=== PATIENT | male | born 1930 | race Caucasian/White ===

== ENCOUNTER → 2019-06-10 05:43 | Day surgery (SDC) | payer MEDICARE ==
--- NOTE | 2019-06-04 15:10 | HP ---
AMENDED REPORT NOW INCLUDES DESIGNATED COSIGNER CC: Dr. Mott * PREOPERATIVE HISTORY AND PHYSICAL: DATE OF ADMISSION: This patient is scheduled for same-day surgery by Dr. Szymanski on 06/10/19. DATE OF PREOPERATIVE HISTORY AND PHYSICAL: 06/04/19. ATTENDING SURGEON: Dr. Petros Szymanski * (dictated by Aileen Sandoval NP). CHIEF COMPLAINT: Left inguinal hernia. HISTORY OF PRESENT ILLNESS: The patient is an 88-year-old male, recently evaluated by Dr. Szymanski for a left inguinal hernia. The patient reported a left -sided inguinal bulge that had been present for a few months, associated with minimal discomfort; the pain increased if he was straining to have a bowel movement and was relieved by rest. He denied any associated nausea, vomiting, or dysuria. He had an open right inguinal hernia repair approximately [address] Szymanski examined the patient and noted a reducible left inguinal hernia. Dr. Szymanski has recommended robotic left inguinal hernia repair with mesh as a same-day surgery procedure under general anesthesia. Dr. Szymanski explained the nature of the surgical procedure, the rationale for the procedure , the relevant risks and benefits, and today I have reviewed the expected postoperative care and recovery. The patient has had a chance to ask questions and stated that he understands the information and is satisfied with the answers given to his questions. He will sign surgical consent on the day of surgery. PAST MEDICAL HISTORY: Soewrodb-eg-putuxy mitral insufficiency, followed by Dr. Rodriguez who states that the patient is stable but should be monitored for congestive heart failure and volume overload should be avoided; benign prostatic hypertrophy and is followed by Dr. Tovar; gastroesophageal reflux disease; irritable bowel syndrome. PAST SURGICAL HISTORY: Right inguinal hernia repair approximately 12 years ago , bilateral cataract extraction 2013, right Achilles tendon repair, and right wrist surgery. MEDICATIONS: 1. Ranitidine 150 mg p.o. daily in the morning. 2. Alfuzosin ER 10 mg p.o. daily at dinnertime. 3. Finasteride 5 mg p.o. daily at lunch. 4. Fish oil 1000 mg p.o. every other day. 5. Multivitamin 1 tablet p.o. daily in the morning. 6. Metronidazole cream to areas of rosacea morning and evening. ALLERGIES: No known drug allergies, but he is sensitive to LATEX. FAMILY HISTORY: Father at age 77 with gastric cancer. Mother at age 78 with cardiac conditions. No known anesthesia complications, bleeding tendencies, or clotting disorders. 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 He has never been a smoker. He drinks 1 glass of wine per day and exercises regularly and denies the use of substances. REVIEW OF SYSTEMS: Constitutional: No fevers, chills, excessive fatigue, or weight loss. Endocrine: No diabetes or thyroid disease. Hematologic: No easy bruising or bleeding. No previous blood transfusions. Respiratory: No dyspnea on exertion. No chronic cough. Cardiovascular: No anginal chest pain. No palpitations. No syncopal episodes. Please see the accompanying consultation note dated 04/08/[address] Rodriguez; echocardiogram 03/26/19 revealed a visual ejection fraction of 50% to 55%, alutiiq mitral valve with uqpgnvdv-yi-kxqlbj regurgitation. Dr. Rodriguez is aware that the patient is having this robotic left inguinal hernia repair under general anesthesia and states that the patient is stable, but is to be monitored for congestive heart failure and volume overload is to be avoided; the patient is active, playing tennis 2 times a week and also exercises at a gym twice a week. Gastrointestinal: No nausea, vomiting, diarrhea, GI bleeding, or chronic constipation. No change in bowel habits. Genitourinary: No dysuria. Musculoskeletal: Normal strength and tone. Integumentary: Multiple seborrheic keratoses. No inflammation or ulceration. Neurologic: No headache or blurred vision. No areas of focal weakness or numbness. General: No history of deep vein thrombosis or pulmonary embolism. No previous anesthesia complications. PHYSICAL EXAMINATION GENERAL SURVEY: The patient is an 88-year-old male, well developed, well nourished, in no acute distress. VITAL SIGNS: Height 67 inches, weight 136 pounds. Body mass index 21.3. Blood pressure 106/74. Pulse 72 and regular. Respiratory rate 16. Temperature 98 tympanic. HEENT: Benign. NECK: Supple. No cervical lymphadenopathy. LUNGS: Breath sounds bilaterally clear. HEART: Regular rate and rhythm. No gallops or rubs. There is a grade 4/6 systolic murmur in the left sternal border. ABDOMEN: Active bowel sounds, soft, nondistended, nontender throughout. No obvious masses, organomegaly, or evidence of umbilical hernia. Inguinal exam done by Dr. Szymanski revealed a reducible left inguinal hernia. GENITALIA AND RECTAL EXAM: Done recently, not repeated. EXTREMITIES: Warm without edema. NEUROLOGIC: Alert and oriented x3, steady gait. SKIN: Warm, dry, and intact. Multiple seborrheic keratoses. No skin ulcerations or inflammation. IMPRESSION: Left inguinal hernia. PLAN: Same-day surgery admission to Dr. Szymanski's service on 06/10/19, for robotic left inguinal hernia repair with mesh. ANGELA SANDOVAL, SENIOR PAYROLL SPECIALIST [id number]/[facility] #: [id number] MTDD
[~2019-06-10 05:43] MED LIST: Buffered Lidocaine 1% SYRIN* 1 ML/SYRINGE INTRADERM ONE; Bupivacaine 0.5%* 50 ML MDV VIAL ONE; Dexamethasone IV* 4 MG/ML 1 ML (4 MG) ONE; EPHEDrine (Pressors)* 50 MG/ML VIAL ONE; Lactated Ringers 1000 ML Bag* 1,000 ML IV SCH; Lidocaine 2% PF * 5 ML VIAL ONE; Midazolam* 1 MG/ML 2 ML VIAL (2 MG) ONE; Naloxone* 0.4 MG/ML 1 ML VIAL IV PRN; Ondansetron INJ* 2 MG/ML VIAL IV PRN; Ondansetron INJ* 2 MG/ML VIAL ONE; Propofol* 10 MG/ML 20 ML BTL ONE; Rocuronium* 10 MG/ML VIAL ONE; Sugammadex * 200 MG/2 ML VIAL IV PUSH ONE; ceFAZolin 2 GM in NS PREMIX(*) 2 GM/100 ML BAG IVPB ONE; fentaNYL* 50 MCG/ML 2 ML VIAL (100 MCG VIAL) ONE; oxyCODONE/Acetamin 5/325 MG* TAB PO PRN
[2019-06-10] MEDS: fentaNYL* 50 MCG/ML 2 ML VIAL (100 MCG VIAL) IV PRN ×2 (09:14→09:24)
[2019-06-10 10:33] VITALS: BP 114/57
--- NOTE | 2019-06-10 21:44 | OP ---
DATE OF OPERATION: 06/10/19 - [facility] DATE OF : 34 SURGEON: Petros Szymanski MD PRE-OP DIAGNOSIS: Left inguinal hernia. POST-OP DIAGNOSIS: Left inguinal hernia. OPERATIVE PROCEDURE: Robotic repair of left inguinal hernia with mesh. INDICATIONS: Left inguinal hernia risks included but not limited to bleeding, infection, injury to intraabdominal contents, pelvic nerves and vessels, recurrence of the hernia were explained to the patient, who seemed to understand and agreed to the procedure and all questions were answered. DESCRIPTION OF PROCEDURE: The patient was taken to the operating room and placed supine. Preoperative antibiotics were given. After successful induction of general endotracheal anesthesia, the abdomen was prepped and draped in a sterile fashion. Time-out was performed, indicating correct patient and correct procedure. A 5-mm trocar was placed in the left upper quadrant under direct visualization of the camera using a bladeless Optiview trocar. Pneumoperitoneum was achieved to 15 mmHg. Camera was placed in the abdomen and the abdomen was scanned. There was no obvious injury from trocar placement. 8-mm robotic trocars were placed in the midline and right upper quadrant respectively under direct visualization of the camera and then the 5- mm trocar was placed with an 8-mm robotic trocar. The patient was placed in the slight Trendelenburg position. The camera revealed a left inguinal hernia. The mesh and suture were passed under direct visualization of the camera. The robot was brought in and then docked. The peritoneum was taken down and a large direct hernia sac was dissected from the surrounding tissue and the cord structures were identified and avoided. The mesh, left anatomic, was placed over the pelvis covering the direct and indirect and femoral spaces. The peritoneum was closed with a running V-Loc stitch. The abdomen was scanned and there was no obvious injury. The pneumoperitoneum was released from the abdomen. Trocars were removed. The skin was closed with Monocryl and glue. He tolerated the procedure well. He was extubated and taken to Recovery in stable condition. [id number]/[facility] #: [id number] MTDD
== END | disposition home or self-care (01) ==
LOC: OR 05:43
PROVIDERS: ATTEND Surgery
DX: K40.90 Unilateral inguinal hernia, without obstruction or gangrene, not specified as recurrent (principal); I34.0 Nonrheumatic mitral (valve) insufficiency; N40.0 Benign prostatic hyperplasia without lower urinary tract symptoms; K21.9 Gastro-esophageal reflux disease without esophagitis; K58.9 Irritable bowel syndrome, unspecified
CPT/HCPCS: 49650; S2900; C1781; J0690; J1100; J2250; J2405; J2704; J3010; J3490

== ENCOUNTER 2019-09-20 09:01 | Emergency (ER) | payer MEDICARE ==
--- OUTSIDE RECORDS SUMMARY | 2019-09-20 09:07 | XMS REPORT | Continuity of Care Document ---
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 Onset: 01/06/2015 Lens Replaced By Other Means Todd Wheeler O.D. Onset: 11/25/2013 Superficial injury of cornea Justin Vallejo M.D. Onset: 11/13/2013 Status Post Surgery Justin Vallejo M.D. Onset: 11/13/2013 Neoplastic disease Justin Vallejo M.D. Onset: 10/09/2013 Vitreous degeneration Justin Vallejo M.D. Onset: 10/09/2013 Nuclear senile cataract Justin Vallejo M.D. Onset: 10/09/2013 Social History Type Date Description Comments Sex Unknown ETOH Use Drinks 1 Alcoholic Beverage Per Day Tobacco Use Start: Unknown Patient has never smoked Smoking Status Reviewed: 07/25/19 Patient has never smoked Allergies, Adverse Reactions, Alerts Active Allergies Reaction Severity Comments Date NKDA 10/09/2013 Hay Fever 12/25/2017 Seasonal 07/11/2019 Medications Active Medications SIG Qnty Indications Ordering Provider Date Fluorometholone 1gtt three 10ml Todd Smith, OD 07/11/2019 0.1% Suspension times a day both eyes x 1 week, then twice per day x 1 week Finasteride (Avodart) Unknown Tablets Alfuzosin HCL ER Unknown (Uroxatral) Tablets ER 24HR Ranitidine HCL Take 1 Tablet Unknown 150mg Tablets By Mouth Once Daily Mens Multivitamin Unknown Tablets Fish Oil 1 by mouth Unknown 500mg Capsules twice a day Immunizations Description No Information Available Vital Signs Date Vital Result Comment 07/25/2019 10:45am Intraocular Pressure Right Eye 15 mmHg Intraocular Pressure Left Eye 15 mmHg 07/11/2019 11:19am Intraocular Pressure Right Eye 15 mmHg Intraocular Pressure Left Eye 15 mmHg Results Description No Information Available Procedures Description No Information Available Medical Devices Description No Information Available Encounters Type Date Location Provider Dx Diagnosis Office Visit 07/11/2019 Main Office Todd Smith, OD H04.123 Dry eye syndrome of 11: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
[2019-09-20 09:22] VITALS: BP 134/63
--- NOTE | 2019-09-20 09:40 | UC ---
Cardiac HPI - HPI Summary HPI Summary: WOKE UP THIS MORNING IN HIS NORMAL STATE OF HEALTH. ABOUT 8 AM DEVELOPED LEFT LOWER ANTERIOR CHEST PAIN. PATIENT IS UNABLE TO REALLY DESCRIBE IT. NO RADIATION OF THE PAIN. DENIES SHORTNESS OF BREATH, NAUSEA, SWEATS, DIZZINESS. STATES HE HAS A HISTORY OF A LEAKY MITRAL VALVE AND FOLLOWS WITH DR. JANE WITH CARDIOLOGY. HAS ECHOCARDIOGRAM SCHEDULED IN 3 DAYS. THE PAIN LASTED FOR OVER AN HOUR AND WHEN IT DID NOT RESOLVE THEY DECIDED TO COME TO THE URGENT CARE. UPON ARRIVAL TO THE URGENT CARE HIS PAIN SPONTANEOUSLY RESOLVED. HIS GAVE HIM 8 X 81 MG ASPIRINS THIS MORNING. HE HAS NO PERSONAL HISTORY OF CAD HOWEVER HIS BROTHER HAS HAD BYPASS SURGERY. - History of Current Complaint Stated Complaint: chestpain Time Seen by Provider: 09/20/19 09:02 Hx Obtained From: Patient, Family/Assembler Dielectric Heater - Onset/Duration: Sudden Onset, Lasting Hours, Resolved Timing: Constant Initial Severity: Moderate Current Severity: None Pain Intensity: 5 Chest Pain Location: Left Anterior - LOWER Aggravating Factor(s): Nothing Alleviating Factor(s): Spontaneous Resolution Associated Signs & Symptoms: Positive: Chest Pain. Negative: Anxiety, Dizziness , SOB, Fever, Nausea/Vomiting - Allergy/Home Medications Allergies/Adverse Reactions: Allergies Allergy/AdvReac Type Severity Reaction Status Date / Time lactose Allergy Intermediate GI Upset Verified 06/10/19 06:20 PMH/Surg Hx/FS Hx/Imm Hx Other Cancer History: BASAL CELL - Surgical History Surgical History: Yes Surgery Procedure, Year, and Place: [place] [facility] [place], [place]/17/2012[place] [facility]. [place]VERAL [place] [facility] [place]ES [place] [facility] [place] Social History Alcohol Use: Daily Alcohol Amount: 1 glass of wine A DAY Substance Use Type: None Smoking Status (MU): Never Smoked Tobacco Review of Systems All Other Systems Reviewed And Are Negative: Yes Constitutional: Positive: Negative Respiratory: Positive: Negative Cardiovascular: Positive: Chest Pain Gastrointestinal: Positive: Negative Physical Exam Triage Information Reviewed: Yes Appearance: Well-Appearing, No Pain Distress, Well-Nourished Vital Signs: Initial Vital Signs Temp 98.1 F 09/20/19 09:16 Pulse 56 09/20/19 09:16 Resp 18 09/20/19 09:16 BP 134/63 09/20/19 09:16 Pulse Ox 97 09/20/19 09:16 Vital Signs Reviewed: Yes Eyes: Positive: Conjunctiva Clear ENT: Positive: Hearing grossly normal Neck: Positive: Supple Respiratory Exam: Normal Cardiovascular: Positive: Bradycardia Abdomen Description: Positive: Soft Musculoskeletal: Positive: No Edema Neurological: Positive: Alert Psychological: Positive: Normal Response To Family, Age Appropriate Behavior Skin: Negative: Rashes Diagnostics - EKG Cardiac Rate: Bradycardia - 52 bpm Cardiac Rhythm: Sinus: Normal Ectopy: None ST Segment: Normal - Assessment/Plan Course Of Treatment: [place] [facility] FOR FURTHER EVAL AND MGMT. - Clinical Impression Provider Diagnosis: Chest pain - Physician Notifications Discussed Patient Care With: Chalino Sloan - [place] [facility] [place] Time Discussed With Above Provider: 09:54 Instructed by Provider To: Will See In ED Discharge ED - Sign-Out/Discharge Documenting (check all that apply): Patient Departure All imaging exams completed and their final reports reviewed: No Studies - Discharge Plan Condition: Stable Disposition: TRANS HIGHER LVL OF CARE FAC Patient Education Materials: Chest Pain (ED) Referrals: [place] Mott MD [Primary Care Provider] - - Billing Disposition and Condition Condition: STABLE Disposition: Trans Higher Lvl of Care Fac
[2019-09-20] MEDS ORDERED: NS 0.9% 1000 ML** 1,000 ML IV ONE (09:49)
== END 2019-09-20 10:06 | disposition short-term general hospital (02) ==
LOC: UCEAST 09:01
DX: R07.9 Chest pain, unspecified (principal); R00.1 Bradycardia, unspecified; Z91.011 Allergy to milk products; Z85.828 Personal history of other malignant neoplasm of skin
CPT/HCPCS: 96361; 99213; G0463

== ENCOUNTER 2019-09-20 10:24 | Emergency (ER) | payer MEDICARE ==
--- NOTE | 2019-09-20 10:32 | ED ---
HPI Chest Pain - HPI Summary HPI Summary: The patient is an 89 y/o M arriving by ambulance from [facility] with a chief complaint of left CP that has since resolved. He reports that he woke up around 0730 and had pain in the lower left anterior chest while at rest which lasted for about an hour without any nausea, diaphoresis, or SOB. He states that he had taken eight 81mg ASA prior to going to [facility], where his pain spontaneously resolved. Patient has been pain-free, and vitals were stable en route with BP of 119/60 mmHg and HR between 50-60 bpm. He notes that he has never experienced this pain before. Unsure of date of last stress test. No recent travel, surgery , history of blood clots. Exercises regularly. PMHx: leaky mitral valve, cardiomegaly, GERD. Plan for ECG on 09/23/19. [facility] Director is Dr. Rodriguez. FHx : fatal DC in mother. Nonsmoker, one glass wine daily, no substance use. Medications reviewed. Allergies noted. - History of Current Complaint Hx Obtained From: Patient Onset/Duration: Started Hours Ago, Resolved Time of Onset: 07:30 Timing: Lasting Minutes - one hour Initial Severity: Moderate Current Severity: None Pain Intensity: 0 Pain Scale Used: 0-10 Numeric Chest Pain Location: Lower Sternal, Left Anterior Chest Pain Radiates: No Character: Dull/Aching Aggravating Factor(s): Nothing Alleviating Factor(s): Spontaneous Resolution Associated Signs and Symptoms: Positive: Chest Pain - resolved. Negative: Shortness of Breath, Diaphoresis, Nausea - Allergy/Home Medications Allergies/Adverse Reactions: Allergies Allergy/AdvReac Type Severity Reaction Status Date / Time lactose Allergy Intermediate GI Upset Verified 06/10/19 06:20 Home Medications: Home Medications Metronidazole (TOPICAL)(NF) [Metrocream (NF)] 1 applic TOPICAL .1-2X/DAY [History Confirmed 09/20/19] Multivitamins/Minerals TAB* [Theragran/minerals TAB*] 1 tab PO DAILY 09/20/19 [ History Confirmed 09/20/19] PMH/Surg Hx/FS Hx/Imm Hx Endocrine/Hematology History: Denies: Hx Diabetes Cardiovascular History: Reports: Hx Cardiomegaly - ENLARGED, Hx Valvular Heart Disease - leaky mitral valve Denies: Hx Hypertension, Hx Pacemaker/ICD, Other Cardiovascular Problems/ Disorders GI History: Reports: Hx Gastroesophageal Reflux Disease, Hx Irritable Bowel Denies: Other GI Disorders History: Denies: Hx Renal Disease Musculoskeletal History: Reports: Hx Tendonitis - 12 YEARS AGO, ACHILLES Sensory History: Reports: Hx Cataracts - [place], Hx Contacts or Glasses - reading glasses, Hx Hearing Aid - both ears Opthamlomology History: Reports: Hx Cataracts - [place], Hx Contacts or Glasses - reading glasses Neurological History: Denies: Other Neuro Impairments/Disorders Psychiatric History: Denies: Hx Panic Disorder - Cancer History Cancer Type, 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 [facility], RIGHT NOSE, 07/17/2012, [facility]. SEVERAL BASAL CELL SKIN, [facility]. ACHILLES TENDON,RIGHT repair 2001, [facility] Hx Anesthesia Reactions: No - Family History Known Family History: Positive: Cardiac Disease - fatal DC mother - Social History Alcohol Use: Daily Alcohol Amount: 1 glass of wine A DAY Hx Substance Use: No Substance Use Type: Reports: None Hx Tobacco Use: No Smoking Status (MU): Never Smoked Tobacco Review of Systems Negative: Skin Diaphoresis Positive: Chest Pain - left lower, resolved Negative: Shortness Of Breath Negative: Nausea All Other Systems Reviewed And Are Negative: Yes Physical Exam - Summary Physical Exam Summary: Constitutional: Well-developed, Well-nourished, Alert. (-) Distressed Skin: Warm, Dry HENT: Normocephalic; Atraumatic Eyes: Conjunctiva normal Neck: Musculoskeletal ROM normal neck. (-) JVD, (-) Stridor, (-) Tracheal deviation Cardio: Rhythm regular, rate normal, Heart sounds normal; Intact distal pulses; Radial pulses are 2+ and symmetric. (-) Murmur Pulmonary/Chest wall: Effort normal. (-) Respiratory distress, (-) Wheezes, (-) Rales Abd: Soft, (-) tenderness, (-) Distension, (-) Guarding, (-) Rebound Musculoskeletal: (-) Edema Lymph: (-) Cervical adenopathy Neuro: Alert, Oriented x3, Good pulses bilaterally in radius, No calf tenderness , No venous cords, No pain with dorsiflexion of foot. Psych: Mood and affect Normal Triage Information Reviewed: Yes Vital Signs Reviewed: Yes Procedures - Sedation Patient Received Moderate/Deep Sedation with Procedure: No Diagnostics - Laboratory Result Diagrams: 09/20/19 10:48 09/20/19 10:48 Lab Statement: Any lab studies that have been ordered have been reviewed, and results considered in the medical decision making process. - Radiology CXR Radiology Interpretation Completed By: Radiologist Summary of Radiographic Findings: Impression: No acute cardiopulmonary process by radiograph. ED physician has reviewed this report. - EKG 1034 Cardiac Rate: Bradycardia - 44 bpm EKG Rhythm: Sinus Bradycardia EKG Comparison: No Significant Change - Similar to previous taken 0908 this morning at [facility]. Summary of EKG Findings: EKG at 1034 reveals sinus bradycardia at 44 bpm. No ischemic changes. ED physician has reviewed and interpreted this EKG. 1338 Cardiac Rate: Bradycardia - 48 bpm EKG Rhythm: Sinus Bradycardia Summary of EKG Findings: EKG at 1338 reveals sinus bradycardia at 48 bpm. Multiple premature beats. ED physician has reviewed and interpreted this EKG. Re-Evaluation - Re-Evaluation First Eval Re-Evaluation Time: 14:10 Change: Improved Comment: We discussed results and plan for discharge. Chest Pain Course/Dx - Course Course Of Treatment: Patient is here with a singular episode of left-sided chest pain that had resided by the time he got here. Patient had an EKG showed no ischemic changes. Patient had serial troponins which were negative. Patient has a well score of 0 for PE and his story is not consistent with dissection. Patient has a heart score of 2 and already has an appointment with his wirer helper next week. Patient was discharged for outpatient stress test. - Diagnoses Provider Diagnoses: Chest pain Discharge ED - Sign-Out/Discharge Documenting (check all that apply): Patient Departure - Patient will be discharged home. - Discharge Plan Condition: Stable Disposition: HOME Patient Education Materials: Chest Pain (DC) Referrals: [place] Mott MD [Primary Care Provider] - 3 Days Chelsie Rodriguez MD [Medical Doctor] - 09/23/19 Additional Instructions: Follow up with Dr. Rodriguez at your scheduled appointment next week, and discuss with him the possibility for a stress test. Come back to the emergency department right away for any worsening chest pain, trouble breathing, or any other concerning symptoms. - Billing Disposition and Condition Condition: STABLE Disposition: Home - Attestation Statements Document Initiated by Araceli: Yes Documenting Scribe: Patience Giraldo Provider For Whom Araceli is Documenting (Include Credential): Dr. Bird Mendenhall MD Scribe Attestation: Patience Alvarado scribed for Dr. Bird Mendenhall MD on 09/20/19 at 1447. Scribe Documentation Reviewed: Yes Provider Attestation: The documentation as recorded by the Patience le accurately reflects the service I personally performed and the decisions made by me, Dr. Bird Mendenhall MD Status of Scribe Document: Viewed
[2019-09-20 10:55] LABS: ABS Lymphocytes 0.9 10^3/ul (1.0-4.8); ABS Monocytes 0.4 10^3/ul (0-0.8); Eosinophil % 0.3 %; Hematocrit 34 % (42-52); Hemoglobin 12.1 g/dL (14.0-18.0); Lymphocyte % 27.8 %; Mean Corpuscular HGB Conc 35 g/dL (31-36); Mean Corpuscular Hemoglobin 36 pg (27-31); Mean Corpuscular Volume 103 fL (80-94); Mean Platelet Volume 8.5 fL (7.4-10.4); Nucleated Red Blood Cells % 0.1; Platelet Count 161 10^3/uL (150-450); Red Blood Count 3.36 10^6 /uL (4.18-5.48); Red Cell Distribution Width 13 % (10-15); White Blood Count 3.3 10^3/uL (3.5-10.8)
[2019-09-20 11:14] LABS: Troponin I 0.01 ng/mL (<0.03)
[2019-09-20 11:20] LABS: Albumin 3.5 g/dL (3.2-5.2); Albumin/Globulin Ratio 1.3 (1-3); BUN/Creatinine Ratio 19.8 (8-20); Calcium 8.7 mg/dL (8.6-10.3); EGFR African American 101.8 (>60); EGFR Non-African American 84.1 (>60); Globulin 2.6 g/dL (2-4); Potassium 4.3 mmol/L (3.5-5.0); Total Bilirubin 0.5 mg/dL (0.2-1.0); Total Protein 6.1 g/dL (6.4-8.9)
[2019-09-20 14:23] VITALS: BP 117/68
== END 2019-09-20 14:16 | disposition home or self-care (01) ==
LOC: ED 10:24
DX: R07.9 Chest pain, unspecified (principal); Z79.899 Other long term (current) drug therapy; K21.9 Gastro-esophageal reflux disease without esophagitis; Z85.828 Personal history of other malignant neoplasm of skin
CPT/HCPCS: 36415; 71046; 80053; 84484; 85025; 93005; 99283